=== PATIENT | female | born 1990 | race Hispanic/Latino ===

== ENCOUNTER → 2025-01-05 | Day surgery (SDC) | payer BC ==
[~2025-01-05] MED LIST: ACETAMINOPHEN 1000 MG/100 ML 100 ML IV ONE; ADDERALL XR 1515 MG PO; DEXAMETHASONE SOD PHOS INJ 4 MG/ML SDV ONE; ESMOLOL HCL 100MG/10ML 10 MG/ML VIAL ONE; FENTANYL CITRATE/PF 100MCG/2 ML INJ ONE; FISH OIL 1,0001 EAC7 PO; GLYCOPYRROLATE INJ 0.2 MG/ML VIAL ONE; K2 PLUS D3 TAB1 EACH; LIDOCAINE HCL 2% LOCAL INJ 5 ML SDV VIAL INJ ONE; MULTI-VITAMIN1 EACH PO; NEOSTIGMINE 1 MG/ML 10ML VIAL ONE; ONDANSETRON HCL INJ 2MG/ML 2ML 2 MG/ML VIAL ONE; PROPOFOL IV EMULSION 10 MG/ML 20 ML VIAL ONE; PROZAC20 MG PO; ROCURONIUM BROMIDE 1 ML IV ONE; VENTOLIN HFA18 GM INH
[2025-01-05] MEDS: LACTATED RINGER'S 1,000 ML ONE (06:28)
[2025-01-05 08:32] VITALS: TEMP 97.6
[2025-01-05] MEDS: FENTANYL CITRATE/PF 100MCG/2 ML INJ ONE (08:55)
[2025-01-05 09:35] VITALS: BP 137/90; PULSE 69; RESP 16; O2SAT 97
== END | disposition home or self-care (01) ==
LOC: OR 05:46
PROVIDERS: ATTEND Otolaryngology Otolaryngology/Facial Plastic Surgery
DX: J34.2 Deviated nasal septum (principal); J34.89 Other specified disorders of nose and nasal sinuses; R51.9 Headache, unspecified; J45.909 Unspecified asthma, uncomplicated; E78.5 Hyperlipidemia, unspecified; F41.9 Anxiety disorder, unspecified; Z79.899 Other long term (current) drug therapy
CPT/HCPCS: 30520; 81025; 88304; 88311; J0131; J1100; J2003; J2405; J2704; J2710; J3010; J7121; 88300